=== PATIENT | female | born 2005 | race Caucasian/White ===

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

== ENCOUNTER → 2025-04-07 | Outpatient (CLI) | payer BC ==
[2025-04-07 17:46] LABS: PLATELET COUNT, AUTOMATED 328 10^3/uL (150-450)
[2025-04-07 18:09] LABS: FREE T4 1.43 NG/DL (0.83-1.43)
[2025-04-07 18:10] LABS: IRON (FE) 105 UG/DL (50-170); PERCENT SATURATION 36.2 % (13.2-45.0)
[2025-04-07 18:11] LABS: ALT/SGPT 16 U/L (7.0-40); AST/SGOT 15 U/L (<34); CALCIUM LEVEL 9.1 MG/DL (8.5-10.1); CARBON DIOXIDE LEVEL 27 MMOL/L (20-31); CHLORIDE LEVEL 104 MMOL/L (98-107); CREATININE FOR GFR 0.68 MG/DL (0.55-1.30); GLOMERULAR FILTRATION RATE > 90.0 (>60); MAGNESIUM LEVEL 2.1 MG/DL (1.8-2.4); POTASSIUM SERUM 4.7 MMOL/L (3.5-5.1); SODIUM LEVEL 138 MMOL/L (136-145); TOTAL 25(OH) VITAMIN D 32.5 NG/ML (20.0-100.0)
[2025-04-07 18:12] LABS: VITAMIN B12 LEVEL 845 PG/ML (211-911)
== END ==
LOC: M PLALAB 14:51
PROVIDERS: ATTEND Nurse Practitioner Family
DX: R42 Dizziness and giddiness (principal)

== ENCOUNTER → 2025-04-27 | Outpatient (CLI) | payer BC | LOC: M SOG 07:37 | PROVIDERS: ATTEND Physician Assistant | DX: S82.852D Displaced trimalleolar fracture of left lower leg, subsequent encounter for closed fracture with routine healing (principal); W18.30XD Fall on same level, unspecified, subsequent encounter ==

== ENCOUNTER → 2025-05-11 | Outpatient (CLI) | payer BC | LOC: M PLALAB 15:55 | PROVIDERS: ATTEND Student in an Organized Health Care Education/Training Program | DX: R07.81 Pleurodynia (principal) ==

== ENCOUNTER → 2025-06-08 | Outpatient (CLI) | payer BC | LOC: M RAD 14:42 | PROVIDERS: ATTEND Nurse Practitioner Family | DX: E05.00 Thyrotoxicosis with diffuse goiter without thyrotoxic crisis or storm (principal) ==